=== PATIENT | male | born 1970 | race Caucasian/White ===

== ENCOUNTER 2022-04-29 21:28 | Inpatient (IN) | payer SELFPAY ==
[~2022-04-29] VITALS: Ht 182.9 cm; Wt 99.8 kg
[2022-04-29] MEDS ORDERED: Vancomycin IV 2 GM in SODIUM CHLORIDE 0.9% 250ML 250 ML IV STA (21:50)
[2022-04-29] MEDS ORDERED: SODIUM CHLORIDE 0.9% 1000ML 3,000 ML IV SCH (22:00)
[2022-04-29 22:03] LABS: BASOPHILS % 0.3 % (0.0-1.0); EOSINOPHILS % 0.5 % (0.0-6.0); HEMATOCRIT 46.7 % (38.2-49.6); HEMOGLOBIN 14.5 g/dL (14.0-18.0); LYMPHOCYTES # (AUTO) 1.5 (1.0-3.2); LYMPHOCYTES % 16.8 % (18.0-39.1); MEAN CORPUSCULAR HEMOGLOBIN 29.6 pg (28-32); MEAN CORPUSCULAR VOLUME 95.3 fL (81-99); MONOCYTES # (AUTO) 1.2 (0.2-0.8); MONOCYTES % 13.9 % (4.4-11.3); NEUTROPHILS % 67.6 % (38.7-80.0); PLATELET COUNT 303 x10e3/uL (140-360); RED CELL DISTRIBUTION WIDTH 15.4 % (11.7-14.4)
[2022-04-29 22:07] LABS: INR 1.33; PROTHROMBIN TIME 16.7 seconds (11.9-14.5)
[2022-04-29 22:08] LABS: PARTIAL THROMBOPLASTIN TIME 33.9 seconds (23.8-35.5)
[2022-04-29 22:16] LABS: ALBUMIN 2.1 g/dL (3.5-5.0); ALBUMIN/GLOBULIN RATIO 0.4 (0.8-2.0); ANION GAP 26.8 mmol/L (8-16); CREATININE, SERUM 2.07 mg/dL (0.72-1.25); POTASSIUM 3.8 mmol/L (3.5-5.1)
[2022-04-29] MEDS ORDERED: SODIUM CHLORIDE 0.9% 250ML 250 ML ONE (22:38)
[2022-04-29] MEDS ORDERED: Vancomycin IV 1 GM VIAL ONE ×2 (22:38→22:41)
[2022-04-29] MEDS ORDERED: SODIUM CHLORIDE 0.9% 500ML 500 ML ONE (22:41)
[2022-04-30] MEDS ORDERED: ACETAMINOPHEN 325 MG TAB PO ONE (00:45)
[2022-04-30] MEDS ORDERED: ONDANSETRON HCL INJ 2MG/ML 2ML 2 MG/ML VIAL IV STA (00:50)
[2022-04-30 01:47] LABS: CLARITY,URINE CLOUDY (CLEAR); COLOR,URINE AMBER (YELLOW); KETONES,URINE NEGATIVE (NEGATIVE); LEUKOCYTE ESTERASE ,URINE 1+ (NEGATIVE); NITRITE,URINE NEGATIVE (NEGATIVE); PROTEIN,URINE DIPSTICK 1+ (NEGATIVE)
[2022-04-30 01:51] LABS: BACTERIA,URINE MANY /HPF; EPITHELIAL CELLS,URINE FEW /LPF; RBC,URINE 21-50 /HPF (0-5)
[2022-04-30 01:52] LABS: AMORPHOUS SEDIMENT,URINE MANY (FEW)
[2022-04-30] MEDS ORDERED: SODIUM CHLORIDE 0.9% 1000ML 1,000 ML IV SCH (02:30)
[2022-04-30] MEDS ORDERED: ONDANSETRON HCL INJ 2MG/ML 2ML 2 MG/ML VIAL IV PRN ×2 (02:30→10:30)
[2022-04-30] MEDS ORDERED: ACETAMINOPHEN 325 MG TAB PO PRN (10:30)
[2022-04-30] MEDS ORDERED: ZINC OXIDE / BALSAM PERU 30 GM TUBE TOP PRN (11:30)
[2022-04-30] MEDS: Morphine 2mg Syringe 2 MG/ML SYR IV PRN ×2 (12:48→20:57)
[2022-04-30] MEDS: METRONIDAZOLE 500MG/NS 100ML 100 ML IV SCH ×2 (13:59→17:15)
[2022-04-30 15:30] VITALS: BP 112/83
[2022-04-30 16:19] VITALS: BP 103/71
[2022-04-30] MEDS: SODIUM BICARBONATE 8.4% 50 ML in SODIUM CHLORIDE 0.45% 1,000 ML IV SCH (17:16)
[2022-04-30 20:00] VITALS: BP 123/84
[2022-05-01] VITALS (8 sets, daily range): BP systolic 94–118; BP diastolic 69–87
[2022-05-01] MEDS: METRONIDAZOLE 500MG/NS 100ML 100 ML IV SCH ×3 (01:14→18:27)
[2022-05-01] MEDS: Morphine 2mg Syringe 2 MG/ML SYR IV PRN ×3 (03:20→21:38)
[2022-05-01] MEDS: SODIUM BICARBONATE 8.4% 50 ML in SODIUM CHLORIDE 0.45% 1,000 ML IV SCH ×3 (04:46→18:27)
[2022-05-01 06:31] LABS: ANION GAP 15.2 mmol/L (8-16); CALCIUM 8.2 mg/dL (8.4-10.2); CREATININE, SERUM 1.47 mg/dL (0.72-1.25); POTASSIUM 3.2 mmol/L (3.5-5.1)
[2022-05-01 08:18] LABS: BASOPHILS # (AUTO) 0.1 (0.0-0.1); BASOPHILS % 0.8 % (0.0-1.0); EOSINOPHILS # (AUTO) 0.2 (0.0-0.4); EOSINOPHILS % 2.3 % (0.0-6.0); HEMATOCRIT 33.7 % (38.2-49.6); HEMOGLOBIN 11.3 g/dL (14.0-18.0); LYMPHOCYTES # (AUTO) 1.3 (1.0-3.2); LYMPHOCYTES % 19.4 % (18.0-39.1); MEAN CORPUSCULAR HGB CONC 33.5 g/dL (31-35); MEAN CORPUSCULAR VOLUME 89.4 fL (81-99); MONOCYTES # (AUTO) 0.7 (0.2-0.8); MONOCYTES % 10.3 % (4.4-11.3); NEUTROPHILS # (AUTO) 4.3 (2.1-6.9); NEUTROPHILS % 65.7 % (38.7-80.0); PLATELET COUNT 181 x10e3/uL (140-360); RED BLOOD COUNT 3.77 x10e6/uL (4.3-5.7); RED CELL DISTRIBUTION WIDTH 15.5 % (11.7-14.4)
[2022-05-01] MEDS ORDERED: METFORMIN HCL500 MG PO (08:42)
[2022-05-01] MEDS ORDERED: CYCLOBENZAPRINE10 MG PO (08:42)
[2022-05-01] MEDS ORDERED: FENOFIBRATE160 MG PO (08:42)
[2022-05-01] MEDS ORDERED: KETOROLAC PO (08:42)
[2022-05-01] MEDS ORDERED: DICLOFENAC SODI75 MG PEG (08:42)
[2022-05-01] MEDS ORDERED: BALSAM PERU/CASTOR OIL 60 GM OINT...G. TP SCH (09:00)
[2022-05-01] MEDS ORDERED: SODIUM CHLORIDE 0.9% 250ML 250 ML ONE (10:28)
[2022-05-01] MEDS ORDERED: POTASSIUM CHLORIDE 20 MEQ TAB CR PO ONE (11:00)
[2022-05-01] MEDS: MULTIVITAMINS/MINERALS TAB PO SCH (11:15)
[2022-05-01] MEDS: BALSAM PERU/CASTOR OIL 60 GM OINT...G. TP SCH (21:00)
[2022-05-02] VITALS (8 sets, daily range): BP systolic 97–129; BP diastolic 52–82
[2022-05-02] MEDS: Morphine 2mg Syringe 2 MG/ML SYR IV PRN ×6 (01:51→22:55)
[2022-05-02] MEDS: METRONIDAZOLE 500MG/NS 100ML 100 ML IV SCH ×3 (01:51→17:30)
[2022-05-02] MEDS: SODIUM BICARBONATE 8.4% 50 ML in SODIUM CHLORIDE 0.45% 1,000 ML IV SCH ×2 (07:00→14:54)
[2022-05-02] MEDS: MULTIVITAMINS/MINERALS TAB PO SCH (09:01)
[2022-05-02 16:55] LABS: ANION GAP 12.6 mmol/L (8-16); CALCIUM 8.1 mg/dL (8.4-10.2); CREATININE, SERUM 1.17 mg/dL (0.72-1.25); POTASSIUM 3.6 mmol/L (3.5-5.1)
[2022-05-02] MEDS: BALSAM PERU/CASTOR OIL 60 GM OINT...G. TP SCH (20:54)
[2022-05-03] VITALS (7 sets, daily range): BP systolic 101–115; BP diastolic 61–82
[2022-05-03] MEDS: SODIUM BICARBONATE 8.4% 50 ML in SODIUM CHLORIDE 0.45% 1,000 ML IV SCH ×2 (02:00→13:07)
[2022-05-03] MEDS: METRONIDAZOLE 500MG/NS 100ML 100 ML IV SCH ×2 (02:08→09:48)
[2022-05-03] MEDS: Morphine 2mg Syringe 2 MG/ML SYR IV PRN ×5 (03:09→21:55)
[2022-05-03] MEDS ORDERED: CEPHALEXIN500 MG PO (06:59)
[2022-05-03] MEDS ORDERED: VENELEX OINTMEN60 GM TP (06:59)
[2022-05-03] MEDS ORDERED: Multivitamins/Minerals PO (06:59)
[2022-05-03] MEDS ORDERED: FLANDERS BUTTOC30 GM TOP (06:59)
[2022-05-03] MEDS ORDERED: TYLENOL325 MG PO (07:00)
[2022-05-03] MEDS: MULTIVITAMINS/MINERALS TAB PO SCH (08:31)
[2022-05-03] MEDS ORDERED: ONDANSETRON HCL 4 MG ORAL DISINTEGRATING TAB PO PRN (12:15)
[2022-05-03] MEDS: METRONIDAZOLE 500 MG TAB PO SCH (17:20)
[2022-05-03] MEDS: BALSAM PERU/CASTOR OIL 60 GM OINT...G. TP SCH (20:45)
[2022-05-04] VITALS (8 sets, daily range): BP systolic 108–125; BP diastolic 76–82
[2022-05-04] MEDS: SODIUM BICARBONATE 8.4% 50 ML in SODIUM CHLORIDE 0.45% 1,000 ML IV SCH ×3 (00:36→21:47)
[2022-05-04] MEDS: Morphine 2mg Syringe 2 MG/ML SYR IV PRN ×5 (02:20→21:47)
[2022-05-04] MEDS: METRONIDAZOLE 500 MG TAB PO SCH ×3 (02:20→17:03)
[2022-05-04] MEDS: MULTIVITAMINS/MINERALS TAB PO SCH (08:45)
[2022-05-04] MEDS: BALSAM PERU/CASTOR OIL 60 GM OINT...G. TP SCH (21:00)
[2022-05-05] VITALS (8 sets, daily range): BP systolic 107–123; BP diastolic 75–91
[2022-05-05] MEDS: METRONIDAZOLE 500 MG TAB PO SCH ×3 (01:46→17:31)
[2022-05-05] MEDS: Morphine 2mg Syringe 2 MG/ML SYR IV PRN ×5 (01:47→20:07)
[2022-05-05] MEDS: SODIUM BICARBONATE 8.4% 50 ML in SODIUM CHLORIDE 0.45% 1,000 ML IV SCH ×2 (06:51→17:31)
[2022-05-05] MEDS: MULTIVITAMINS/MINERALS TAB PO SCH (10:25)
[2022-05-05] MEDS: BALSAM PERU/CASTOR OIL 60 GM OINT...G. TP SCH (21:00)
[2022-05-06] VITALS (9 sets, daily range): BP systolic 101–115; BP diastolic 66–80
[2022-05-06] MEDS: METRONIDAZOLE 500 MG TAB PO SCH ×3 (01:25→16:57)
[2022-05-06] MEDS: SODIUM BICARBONATE 8.4% 50 ML in SODIUM CHLORIDE 0.45% 1,000 ML IV SCH ×2 (04:37→16:58)
[2022-05-06] MEDS: Morphine 2mg Syringe 2 MG/ML SYR IV PRN ×5 (04:48→23:04)
[2022-05-06 06:51] LABS: BASOPHILS % 0.3 % (0.0-1.0); EOSINOPHILS % 0.2 % (0.0-6.0); HEMATOCRIT 28.1 % (38.2-49.6); HEMOGLOBIN 9.7 g/dL (14.0-18.0); LYMPHOCYTES # (AUTO) 1.3 (1.0-3.2); LYMPHOCYTES % 10.6 % (18.0-39.1); MEAN CORPUSCULAR HEMOGLOBIN 31.2 pg (28-32); MEAN CORPUSCULAR HGB CONC 34.5 g/dL (31-35); MEAN CORPUSCULAR VOLUME 90.4 fL (81-99); MONOCYTES # (AUTO) 1.3 (0.2-0.8); MONOCYTES % 10.8 % (4.4-11.3); NEUTROPHILS # (AUTO) 9.4 (2.1-6.9); NEUTROPHILS % 76.8 % (38.7-80.0); PLATELET COUNT 199 x10e3/uL (140-360); RED BLOOD COUNT 3.11 x10e6/uL (4.3-5.7); RED CELL DISTRIBUTION WIDTH 16.5 % (11.7-14.4)
[2022-05-06 07:22] LABS: ANION GAP 13.7 mmol/L (8-16); CALCIUM 7.5 mg/dL (8.4-10.2); CREATININE, SERUM 0.99 mg/dL (0.72-1.25)
[2022-05-06 07:28] LABS: MAGNESIUM 0.9 MG/DL (1.3-2.1); POTASSIUM 2.7 mmol/L (3.5-5.1)
[2022-05-06] MEDS ORDERED: SODIUM CHLORIDE 0.9% 250ML 250 ML ONE ×2 (08:02→08:15)
[2022-05-06] MEDS ORDERED: POTASSIUM CHLORIDE 20MEQ/100ML 100 ML IV ONE (08:30)
[2022-05-06] MEDS ORDERED: POTASSIUM CHLORIDE 20 MEQ TAB CR PO ONE (08:30)
[2022-05-06] MEDS: MULTIVITAMINS/MINERALS TAB PO SCH (08:30)
[2022-05-06] MEDS ORDERED: MAGNESIUM SULFATE 2GM/50ML 50 ML IV ONE (08:30)
[2022-05-06 16:25] LABS: MAGNESIUM 1.8 MG/DL (1.3-2.1); POTASSIUM 3.5 mmol/L (3.5-5.1)
[2022-05-06] MEDS: BALSAM PERU/CASTOR OIL 60 GM OINT...G. TP SCH (20:37)
[2022-05-07] VITALS (7 sets, daily range): BP systolic 101–116; BP diastolic 69–84
[2022-05-07] MEDS: SODIUM BICARBONATE 8.4% 50 ML in SODIUM CHLORIDE 0.45% 1,000 ML IV SCH (01:31)
[2022-05-07] MEDS: METRONIDAZOLE 500 MG TAB PO SCH ×3 (01:31→18:47)
[2022-05-07] MEDS: Morphine 2mg Syringe 2 MG/ML SYR IV PRN ×5 (03:13→18:50)
[2022-05-07 06:23] LABS: BASOPHILS % 0.3 % (0.0-1.0); EOSINOPHILS # (AUTO) 0.1 (0.0-0.4); EOSINOPHILS % 0.9 % (0.0-6.0); HEMATOCRIT 28.9 % (38.2-49.6); HEMOGLOBIN 10.1 g/dL (14.0-18.0); LYMPHOCYTES # (AUTO) 1.4 (1.0-3.2); LYMPHOCYTES % 16.4 % (18.0-39.1); MEAN CORPUSCULAR HEMOGLOBIN 29.4 pg (28-32); MEAN CORPUSCULAR HGB CONC 34.9 g/dL (31-35); MEAN CORPUSCULAR VOLUME 84.3 fL (81-99); MONOCYTES # (AUTO) 0.9 (0.2-0.8); MONOCYTES % 10.2 % (4.4-11.3); NEUTROPHILS # (AUTO) 6.2 (2.1-6.9); NEUTROPHILS % 70.9 % (38.7-80.0); PLATELET COUNT 295 x10e3/uL (140-360); RED BLOOD COUNT 3.43 x10e6/uL (4.3-5.7); RED CELL DISTRIBUTION WIDTH 15.8 % (11.7-14.4)
[2022-05-07 06:55] LABS: ANION GAP 11.9 mmol/L (8-16); CALCIUM 7.4 mg/dL (8.4-10.2); CREATININE, SERUM 0.89 mg/dL (0.72-1.25); MAGNESIUM 1.4 MG/DL (1.3-2.1)
[2022-05-07 06:59] LABS: POTASSIUM 2.9 mmol/L (3.5-5.1)
[2022-05-07] MEDS: MULTIVITAMINS/MINERALS TAB PO SCH (08:03)
[2022-05-07] MEDS: POTASSIUM CHLORIDE 10MEQ/100ML 100 ML IV SCH ×3 (08:03→12:57)
[2022-05-07] MEDS ORDERED: SODIUM CHLORIDE 0.9% 250ML 250 ML ONE ×2 (08:11→11:53)
[2022-05-07] MEDS ORDERED: POTASSIUM CHLORIDE 10MEQ EA PO ONE (08:30)
[2022-05-07] MEDS: TRAMADOL HCL 50 MG TAB PO SCH (21:03)
[2022-05-07] MEDS: MIDODRINE HCL 5 MG TABLET PO SCH (21:03)
[2022-05-07] MEDS: FUROSEMIDE 20 MG TAB PO SCH (21:03)
[2022-05-07] MEDS: ACETAMINOPHEN 325 MG TAB PO SCH (21:03)
[2022-05-07] MEDS: BALSAM PERU/CASTOR OIL 60 GM OINT...G. TP SCH (21:04)
[2022-05-08] VITALS (8 sets, daily range): BP systolic 95–119; BP diastolic 70–84
[2022-05-08] MEDS: METRONIDAZOLE 500 MG TAB PO SCH ×3 (01:21→17:27)
[2022-05-08] MEDS: MIDODRINE HCL 5 MG TABLET PO SCH ×3 (05:41→22:00)
[2022-05-08] MEDS: ACETAMINOPHEN 325 MG TAB PO SCH ×3 (05:41→21:59)
[2022-05-08] MEDS: TRAMADOL HCL 50 MG TAB PO SCH ×3 (05:42→22:00)
[2022-05-08] MEDS: MULTIVITAMINS/MINERALS TAB PO SCH (09:15)
[2022-05-08] MEDS: ALLOPURINOL 100 MG TAB PO SCH (09:15)
[2022-05-08] MEDS: FUROSEMIDE 20 MG TAB PO SCH ×2 (09:15→21:58)
[2022-05-08] MEDS: BALSAM PERU/CASTOR OIL 60 GM OINT...G. TP SCH (22:00)
[2022-05-09] VITALS (8 sets, daily range): BP systolic 89–120; BP diastolic 49–85
[2022-05-09] MEDS: METRONIDAZOLE 500 MG TAB PO SCH ×3 (01:17→17:18)
[2022-05-09] MEDS: ACETAMINOPHEN 325 MG TAB PO SCH ×3 (05:57→21:53)
[2022-05-09] MEDS: MIDODRINE HCL 5 MG TABLET PO SCH ×3 (05:58→21:53)
[2022-05-09] MEDS: TRAMADOL HCL 50 MG TAB PO SCH ×3 (05:58→21:54)
[2022-05-09] MEDS: FUROSEMIDE 20 MG TAB PO SCH ×2 (08:39→21:55)
[2022-05-09] MEDS: MULTIVITAMINS/MINERALS TAB PO SCH (08:39)
[2022-05-09] MEDS: ALLOPURINOL 100 MG TAB PO SCH (08:39)
[2022-05-09] MEDS: BALSAM PERU/CASTOR OIL 60 GM OINT...G. TP SCH (21:00)
[2022-05-10] VITALS (8 sets, daily range): BP systolic 101–124; BP diastolic 68–91
[2022-05-10] MEDS: METRONIDAZOLE 500 MG TAB PO SCH ×2 (01:29→10:00)
[2022-05-10] MEDS: BALSAM PERU/CASTOR OIL 60 GM OINT...G. TP SCH ×2 (02:59→21:33)
[2022-05-10] MEDS: ACETAMINOPHEN 325 MG TAB PO SCH ×3 (05:48→21:34)
[2022-05-10] MEDS: MIDODRINE HCL 5 MG TABLET PO SCH ×3 (05:49→21:33)
[2022-05-10] MEDS: TRAMADOL HCL 50 MG TAB PO SCH ×3 (05:49→21:34)
[2022-05-10 06:16] LABS: BASOPHILS # (AUTO) 0.1 (0.0-0.1); BASOPHILS % 0.6 % (0.0-1.0); EOSINOPHILS # (AUTO) 0.1 (0.0-0.4); EOSINOPHILS % 1.7 % (0.0-6.0); HEMATOCRIT 30.9 % (38.2-49.6); HEMOGLOBIN 10.7 g/dL (14.0-18.0); LYMPHOCYTES # (AUTO) 2.1 (1.0-3.2); LYMPHOCYTES % 26.5 % (18.0-39.1); MEAN CORPUSCULAR HEMOGLOBIN 30.6 pg (28-32); MEAN CORPUSCULAR HGB CONC 34.6 g/dL (31-35); MEAN CORPUSCULAR VOLUME 88.3 fL (81-99); MONOCYTES # (AUTO) 0.5 (0.2-0.8); MONOCYTES % 6.7 % (4.4-11.3); NEUTROPHILS # (AUTO) 5.1 (2.1-6.9); NEUTROPHILS % 63.5 % (38.7-80.0); PLATELET COUNT 370 x10e3/uL (140-360); RED CELL DISTRIBUTION WIDTH 17.4 % (11.7-14.4)
[2022-05-10 06:32] LABS: ANION GAP 12.1 mmol/L (8-16); CALCIUM 7.7 mg/dL (8.4-10.2); CREATININE, SERUM 0.98 mg/dL (0.72-1.25); POTASSIUM 3.1 mmol/L (3.5-5.1)
[2022-05-10] MEDS: MULTIVITAMINS/MINERALS TAB PO SCH (09:00)
[2022-05-10] MEDS: FUROSEMIDE 20 MG TAB PO SCH ×2 (09:00→21:33)
[2022-05-10] MEDS: ALLOPURINOL 100 MG TAB PO SCH (09:00)
[2022-05-10] MEDS ORDERED: POTASSIUM CHLORIDE 20 MEQ TAB CR PO ONE (18:00)
[2022-05-11] VITALS (7 sets, daily range): BP systolic 102–127; BP diastolic 66–95
[2022-05-11] MEDS: TRAMADOL HCL 50 MG TAB PO SCH ×3 (05:05→21:09)
[2022-05-11] MEDS: ACETAMINOPHEN 325 MG TAB PO SCH ×3 (05:05→21:08)
[2022-05-11] MEDS: MIDODRINE HCL 5 MG TABLET PO SCH ×3 (05:05→21:09)
[2022-05-11] MEDS: MULTIVITAMINS/MINERALS TAB PO SCH (09:00)
[2022-05-11] MEDS: FUROSEMIDE 20 MG TAB PO SCH ×2 (09:20→21:00)
[2022-05-11] MEDS: ALLOPURINOL 100 MG TAB PO SCH (09:20)
[2022-05-11 09:57] LABS: BASOPHILS # (AUTO) 0.1 (0.0-0.1); BASOPHILS % 0.7 % (0.0-1.0); EOSINOPHILS # (AUTO) 0.1 (0.0-0.4); EOSINOPHILS % 1.3 % (0.0-6.0); HEMATOCRIT 30.4 % (38.2-49.6); HEMOGLOBIN 10.8 g/dL (14.0-18.0); LYMPHOCYTES # (AUTO) 2.2 (1.0-3.2); LYMPHOCYTES % 22.6 % (18.0-39.1); MEAN CORPUSCULAR HEMOGLOBIN 32.2 pg (28-32); MEAN CORPUSCULAR HGB CONC 35.5 g/dL (31-35); MEAN CORPUSCULAR VOLUME 90.7 fL (81-99); MONOCYTES # (AUTO) 0.7 (0.2-0.8); NEUTROPHILS # (AUTO) 6.5 (2.1-6.9); NEUTROPHILS % 65.8 % (38.7-80.0); PLATELET COUNT 340 x10e3/uL (140-360); RED BLOOD COUNT 3.35 x10e6/uL (4.3-5.7); RED CELL DISTRIBUTION WIDTH 19.5 % (11.7-14.4)
[2022-05-11 10:13] LABS: ANION GAP 12.6 mmol/L (8-16); CALCIUM 7.9 mg/dL (8.4-10.2); CREATININE, SERUM 1.12 mg/dL (0.72-1.25); POTASSIUM 3.6 mmol/L (3.5-5.1)
[2022-05-11] MEDS ORDERED: POTASSIUM CHLORIDE 20 MEQ TAB CR PO ONE (12:00)
[2022-05-11] MEDS: BALSAM PERU/CASTOR OIL 60 GM OINT...G. TP SCH (22:32)
[2022-05-12] VITALS (8 sets, daily range): BP systolic 93–139; BP diastolic 58–88
[2022-05-12] MEDS: Morphine 2mg Syringe 2 MG/ML SYR IV PRN ×2 (00:25→12:09)
[2022-05-12] MEDS: MIDODRINE HCL 5 MG TABLET PO SCH ×3 (05:02→22:23)
[2022-05-12] MEDS: ACETAMINOPHEN 325 MG TAB PO SCH ×3 (05:03→22:25)
[2022-05-12] MEDS: TRAMADOL HCL 50 MG TAB PO SCH ×3 (05:04→22:24)
[2022-05-12] MEDS: MULTIVITAMINS/MINERALS TAB PO SCH (08:58)
[2022-05-12] MEDS: FUROSEMIDE 20 MG TAB PO SCH ×2 (08:58→22:25)
[2022-05-12] MEDS: ALLOPURINOL 100 MG TAB PO SCH (08:59)
[2022-05-12] MEDS: BALSAM PERU/CASTOR OIL 60 GM OINT...G. TP SCH (21:00)
[2022-05-13] VITALS (7 sets, daily range): BP systolic 112–128; BP diastolic 78–86
[2022-05-13] MEDS: ACETAMINOPHEN 325 MG TAB PO SCH ×3 (06:00→22:27)
[2022-05-13] MEDS: TRAMADOL HCL 50 MG TAB PO SCH ×3 (06:00→22:26)
[2022-05-13] MEDS: MIDODRINE HCL 5 MG TABLET PO SCH ×3 (06:15→22:26)
[2022-05-13] MEDS: FUROSEMIDE 20 MG TAB PO SCH ×2 (08:36→22:26)
[2022-05-13] MEDS: ALLOPURINOL 100 MG TAB PO SCH (08:36)
[2022-05-13] MEDS: MULTIVITAMINS/MINERALS TAB PO SCH (08:36)
[2022-05-13] MEDS: BALSAM PERU/CASTOR OIL 60 GM OINT...G. TP SCH ×2 (21:00→22:32)
[2022-05-14] MEDS: Morphine 2mg Syringe 2 MG/ML SYR IV PRN (02:08)
[2022-05-14 04:00] VITALS: BP 114/76
[2022-05-14] MEDS: TRAMADOL HCL 50 MG TAB PO SCH (06:19)
[2022-05-14] MEDS: MIDODRINE HCL 5 MG TABLET PO SCH ×2 (06:19→14:16)
[2022-05-14] MEDS: ACETAMINOPHEN 325 MG TAB PO SCH (06:20)
[2022-05-14 08:00] VITALS: BP 103/71
[2022-05-14 08:45] VITALS: BP 103/71
[2022-05-14] MEDS: FUROSEMIDE 20 MG TAB PO SCH (09:03)
[2022-05-14] MEDS: ALLOPURINOL 100 MG TAB PO SCH (09:03)
[2022-05-14] MEDS: MULTIVITAMINS/MINERALS TAB PO SCH (09:03)
[2022-05-14 11:43] VITALS: BP 108/80
[2022-05-14] MEDS ORDERED: ACETAMINOPHEN 325 MG TAB PO PRN (14:45)
[2022-05-14] MEDS ORDERED: TRAMADOL HCL 50 MG TAB PO PRN (14:45)
[2022-05-14 15:42] VITALS: BP 117/87
== END 2022-05-14 17:26 | DRG 871 ==
LOC: ER 21:35 → ERHOLD 04-30 02:23 → MED/SURG3 04-30 15:35
PROVIDERS: ADMIT Internal Medicine; ATTEND Internal Medicine
DX: A41.9 Sepsis, unspecified organism (principal); L89.213 Pressure ulcer of right hip, stage 3; L89.223 Pressure ulcer of left hip, stage 3; L89.323 Pressure ulcer of left buttock, stage 3; L89.313 Pressure ulcer of right buttock, stage 3; N17.9 Acute kidney failure, unspecified; N39.0 Urinary tract infection, site not specified; E87.20 Acidosis, unspecified; I13.0 Hypertensive heart and chronic kidney disease with heart failure and stage 1 through stage 4 chronic kidney disease, or unspecified chronic kidney disease; R65.20 Severe sepsis without septic shock; R19.7 Diarrhea, unspecified; Z59.02 Unsheltered homelessness; M10.9 Gout, unspecified; L89.622 Pressure ulcer of left heel, stage 2; L89.612 Pressure ulcer of right heel, stage 2; B95.7 Other staphylococcus as the cause of diseases classified elsewhere; Z20.822 Contact with and (suspected) exposure to COVID-19; E87.6 Hypokalemia; E83.42 Hypomagnesemia; N18.9 Chronic kidney disease, unspecified; I50.9 Heart failure, unspecified; Z74.01 Bed confinement status
CPT/HCPCS: 0223U; 36415; 71045; 74176; 80048; 80053; 81001; 82550; 82948; 83605; 83735; 83880; 84132; 84550; 85025; 85610; 85730; 87040; 87086; 87186; 93005; 99252; 99285; J0696; J2270; J2405; J3370; J3475; J3480; J7030; J7040; J7050